=== PATIENT | female | born 1960 | race Caucasian/White ===

== ENCOUNTER 2017-03-16 11:35 | Day surgery (SDC) | END 2017-03-16 20:55 | disposition home or self-care (01) ==

== ENCOUNTER 2018-12-03 11:33 | Inpatient (IN) | payer OTHER ==
[~2018-12-03] VITALS: Ht 152.4 cm; Wt 81.4 kg
[~2018-12-03 11:33] MED LIST: AMLO-147 PO; AMOX1TAB9 PO; AMOX500T PO; CARV25TA97 PO; CARV6.2579 PO; CHLO25TA2 PO; CYCL10TA7 PO; FENO160T13 PO; GABA-526 PO; GLIP10TA14 PO; HYDR-4011 PO; HYDR2TAB36 PO; ISOS30TA67 PO; LANT3I SC; LEVO25TA6 PO; LIDO700A29 TP; LIPA1CAP45 PO; LISI10TA2 PO; LISI1TAB24 PO; LORA-441 PO; METF100010 PO; NALO0.4S IJ; NAPR-688 PO; NITR0.4T39 SL; OMEG1CAP2 PO; OXYC-431 PO; PRAV40TA76 PO; SITA100T11 PO; [UNRECOGNIZED DRUG - CODE] PO
[2018-12-03] MEDS ORDERED: SOD CHLORIDE 0.9% 1,000 ML IV STA ×2 (13:03→14:38)
[2018-12-03] MEDS ORDERED: LEVOFLOXACIN 750MG/D5W (PMX) 150 ML IVPB ONE (14:30)
[2018-12-03] MEDS ORDERED: OXYCODONE/ACETAMINOPHEN (10/325) TAB PO ONE (15:00)
[2018-12-03] MEDS ORDERED: ONDANSETRON 4 MG INJ IV PRN (15:30)
[2018-12-03] MEDS ORDERED: ACETAMINOPHEN 325 MG TAB PO PRN ×2 (15:30→19:00)
[2018-12-03 18:05] VITALS: BP 161/68; PULSE 72; RESP 18
[2018-12-03 18:38] VITALS: Ht 152.4 cm; Wt 81.4 kg
[2018-12-03] MEDS ORDERED: SOD CHLORIDE 0.9% 1,000 ML IV SCH (18:44)
[2018-12-03] MEDS ORDERED: morphine 2 MG INJ IV PRN (19:00)
[2018-12-03] MEDS ORDERED: DOCUSATE SODIUM 100 MG CAP PO PRN (19:00)
[2018-12-03] MEDS ORDERED: HYDROCODONE/APAP (5/325) TAB PO PRN (19:00)
[2018-12-03] MEDS ORDERED: NACL 0.9% 3 ML SYG IV SCH (19:00)
[2018-12-03] MEDS ORDERED: GLUCOSE GEL 15 GRAM TUBE PO PRN ×2 (19:30)
[2018-12-03] MEDS ORDERED: DEXTROSE 50% 50 ML SYRINGE IV PRN ×2 (19:30)
[2018-12-03] MEDS ORDERED: GLUCAGON 1 MG INJ IM PRN (19:30)
[2018-12-03] MEDS ORDERED: GLUCOSE GEL 15 GRAM TUBE BUCCAL PRN (19:30)
[2018-12-03 19:46] VITALS: BP 147/67; PULSE 68; RESP 17
[2018-12-03] MEDS ORDERED: CEFTRIAXONE 1 GM/50 ML (PMX) 50 ML IVPB SCH (20:00)
[2018-12-03] MEDS: GABAPENTIN 300 MG CAP PO SCH (20:59)
[2018-12-03] MEDS: INSULIN GLARGINE [LANTus] (100 UNITS/ML) SYG SC SCH (21:00)
[2018-12-03] MEDS: ISOSORBIDE MONONITRATE(SR)30 MG TAB PO SCH (21:00)
[2018-12-03] MEDS: INSULIN ASPART [NOVOLOG] 3 ML PEN SC SCH (21:00)
[2018-12-03] MEDS: ONDANSETRON 4 MG INJ IV PRN (21:07)
[2018-12-03] MEDS ORDERED: DEXTROSE 5%-0.45% NACL 1,000 ML IV SCH (22:45)
[2018-12-03] MEDS ORDERED: OXYCODONE/ACETAMINOPHEN (5/325) TAB PO PRN (23:00)
[2018-12-03] MEDS: OXYCODONE/ACETAMINOPHEN (5/325) TAB PO PRN (23:13)
[2018-12-04] MEDS: ACCU-CHEK XX SCH ×3 (02:00→21:26)
[2018-12-04 02:42] VITALS: BP 127/60; PULSE 66; RESP 16
[2018-12-04] MEDS: OXYCODONE/ACETAMINOPHEN (5/325) TAB PO PRN (05:47)
[2018-12-04] MEDS: ONDANSETRON 4 MG INJ IV PRN (05:59)
[2018-12-04 07:33] VITALS: BP 149/69; PULSE 63; RESP 16
[2018-12-04] MEDS ORDERED: metFORMIN 500 MG TAB PO SCH (08:00)
[2018-12-04] MEDS: AMLODIPINE 10 MG TAB PO SCH (08:30)
[2018-12-04] MEDS: GABAPENTIN 300 MG CAP PO SCH ×4 (08:30→21:29)
[2018-12-04] MEDS: INSULIN ASPART [NOVOLOG] 3 ML PEN SC SCH ×4 (08:31→21:00)
[2018-12-04] MEDS: morphine 2 MG INJ IV PRN ×7 (10:03→23:43)
[2018-12-04] MEDS: CEFEPIME 1GM/50 ML (PMX) 50 ML IVPB SCH ×2 (12:34→21:28)
[2018-12-04 14:31] VITALS: BP 138/64; PULSE 60; RESP 18
[2018-12-04] MEDS: glipiZIDE 10 MG TAB PO SCH (17:26)
[2018-12-04] MEDS: metFORMIN 500 MG TAB PO SCH (17:26)
[2018-12-04] MEDS ORDERED: ACCU-CHEK XX SCH (17:30)
[2018-12-04 19:34] VITALS: BP 152/68; PULSE 73; RESP 17
[2018-12-04] MEDS: ISOSORBIDE MONONITRATE(SR)30 MG TAB PO SCH (21:00)
[2018-12-04] MEDS: INSULIN GLARGINE [LANTus] (100 UNITS/ML) SYG SC SCH (21:31)
[2018-12-04] MEDS: ZOLPIDEM 5 MG TAB PO PRN (22:28)
[2018-12-05] MEDS: ACCU-CHEK XX SCH ×5 (01:56→21:33)
[2018-12-05] MEDS: morphine 2 MG INJ IV PRN ×9 (02:22→22:07)
[2018-12-05 02:36] VITALS: BP 145/69; PULSE 64; RESP 18
[2018-12-05 07:51] VITALS: BP 130/63; PULSE 62; RESP 16
[2018-12-05] MEDS: glipiZIDE 10 MG TAB PO SCH ×2 (08:56→17:49)
[2018-12-05] MEDS: metFORMIN 500 MG TAB PO SCH ×2 (08:56→17:49)
[2018-12-05] MEDS: AMLODIPINE 10 MG TAB PO SCH (08:57)
[2018-12-05] MEDS: GABAPENTIN 300 MG CAP PO SCH ×4 (08:57→21:25)
[2018-12-05] MEDS: CEFEPIME 1GM/50 ML (PMX) 50 ML IVPB SCH ×2 (08:58→21:24)
[2018-12-05] MEDS: INSULIN ASPART [NOVOLOG] 3 ML PEN SC SCH ×4 (09:00→21:00)
[2018-12-05 14:45] VITALS: BP 161/71; PULSE 66; RESP 16
[2018-12-05 20:12] VITALS: BP 156/71; PULSE 64; RESP 18
[2018-12-05] MEDS: ISOSORBIDE MONONITRATE(SR)30 MG TAB PO SCH (21:00)
[2018-12-05] MEDS: HEPARIN 5,000 UNIT/1 ML VIAL SC SCH (21:00)
[2018-12-05] MEDS: INSULIN GLARGINE [LANTus] (100 UNITS/ML) SYG SC SCH (21:32)
[2018-12-05] MEDS: ZOLPIDEM 5 MG TAB PO PRN (22:05)
[2018-12-06] MEDS: morphine 2 MG INJ IV PRN ×10 (01:32→23:14)
[2018-12-06] MEDS: ACCU-CHEK XX SCH ×5 (01:42→21:00)
[2018-12-06 03:23] VITALS: BP 150/67; PULSE 62; RESP 18
[2018-12-06 07:20] VITALS: BP 155/69; PULSE 56; RESP 16
[2018-12-06] MEDS: INSULIN ASPART [NOVOLOG] 3 ML PEN SC SCH ×4 (08:00→21:00)
[2018-12-06] MEDS: HEPARIN 5,000 UNIT/1 ML VIAL SC SCH ×2 (09:00→21:00)
[2018-12-06] MEDS: metFORMIN 500 MG TAB PO SCH ×2 (09:09→17:29)
[2018-12-06] MEDS: GABAPENTIN 300 MG CAP PO SCH ×4 (09:09→21:20)
[2018-12-06] MEDS: glipiZIDE 10 MG TAB PO SCH ×2 (09:10→17:29)
[2018-12-06] MEDS: AMLODIPINE 10 MG TAB PO SCH (09:10)
[2018-12-06] MEDS: CEFEPIME 1GM/50 ML (PMX) 50 ML IVPB SCH ×2 (09:11→21:19)
[2018-12-06] MEDS: LOSARTAN 25 MG TAB PO SCH (14:07)
[2018-12-06 15:12] VITALS: BP 147/64; PULSE 66; RESP 16
[2018-12-06 19:23] VITALS: BP 130/60; PULSE 71; RESP 16
[2018-12-06] MEDS: ISOSORBIDE MONONITRATE(SR)30 MG TAB PO SCH (21:00)
[2018-12-06] MEDS: ZOLPIDEM 5 MG TAB PO PRN (21:22)
[2018-12-06] MEDS: INSULIN GLARGINE [LANTus] (100 UNITS/ML) SYG SC SCH (21:30)
[2018-12-07] MEDS: morphine 2 MG INJ IV PRN ×9 (01:51→22:01)
[2018-12-07] MEDS: ACCU-CHEK XX SCH ×5 (01:53→21:02)
[2018-12-07 02:00] VITALS: BP 157/73; PULSE 67; RESP 18
[2018-12-07 07:37] VITALS: BP 132/63; PULSE 60; RESP 18
[2018-12-07] MEDS: INSULIN ASPART [NOVOLOG] 3 ML PEN SC SCH ×4 (08:00→21:00)
[2018-12-07] MEDS: metFORMIN 500 MG TAB PO SCH ×2 (08:17→17:47)
[2018-12-07] MEDS: CEFEPIME 1GM/50 ML (PMX) 50 ML IVPB SCH ×2 (08:21→20:58)
[2018-12-07] MEDS: glipiZIDE 10 MG TAB PO SCH ×2 (08:21→17:47)
[2018-12-07] MEDS: GABAPENTIN 300 MG CAP PO SCH ×4 (08:21→21:01)
[2018-12-07] MEDS: AMLODIPINE 10 MG TAB PO SCH (08:22)
[2018-12-07] MEDS: LOSARTAN 25 MG TAB PO SCH (08:22)
[2018-12-07] MEDS: HEPARIN 5,000 UNIT/1 ML VIAL SC SCH ×2 (08:23→21:00)
[2018-12-07 14:53] VITALS: BP 119/58; PULSE 72; RESP 18
[2018-12-07 19:19] VITALS: BP 147/65; PULSE 70; RESP 16
[2018-12-07] MEDS: ISOSORBIDE MONONITRATE(SR)30 MG TAB PO SCH (21:00)
[2018-12-07] MEDS: INSULIN GLARGINE [LANTus] (100 UNITS/ML) SYG SC SCH (21:06)
[2018-12-07] MEDS: ZOLPIDEM 5 MG TAB PO PRN (22:54)
[2018-12-08] MEDS: morphine 2 MG INJ IV PRN ×7 (01:16→16:30)
[2018-12-08] MEDS: ACCU-CHEK XX SCH ×4 (01:20→17:22)
[2018-12-08 01:35] VITALS: BP 157/70; PULSE 66; RESP 16
[2018-12-08 07:28] VITALS: BP 149/67; PULSE 65; RESP 18
[2018-12-08] MEDS: INSULIN ASPART [NOVOLOG] 3 ML PEN SC SCH ×3 (08:00→17:24)
[2018-12-08] MEDS: glipiZIDE 10 MG TAB PO SCH ×2 (08:31→17:22)
[2018-12-08] MEDS: metFORMIN 500 MG TAB PO SCH ×2 (08:31→17:22)
[2018-12-08] MEDS: LOSARTAN 25 MG TAB PO SCH (08:32)
[2018-12-08] MEDS: GABAPENTIN 300 MG CAP PO SCH ×3 (08:33→16:29)
[2018-12-08] MEDS: CEFEPIME 1GM/50 ML (PMX) 50 ML IVPB SCH (08:33)
[2018-12-08] MEDS: AMLODIPINE 10 MG TAB PO SCH (08:33)
[2018-12-08] MEDS: HEPARIN 5,000 UNIT/1 ML VIAL SC SCH (08:35)
[2018-12-08 14:30] VITALS: BP 156/67; PULSE 75; RESP 20
== END 2018-12-08 18:26 | disposition home or self-care (01) | DRG 872 ==
LOC: FTE 11:33 → 2NE 15:21 → OBSVTOIN 12-04 17:12
PROVIDERS: ADMIT Internal Medicine; ATTEND Internal Medicine
DX: A41.9 Sepsis, unspecified organism (principal); N39.0 Urinary tract infection, site not specified; N17.9 Acute kidney failure, unspecified; K86.1 Other chronic pancreatitis; E11.22 Type 2 diabetes mellitus with diabetic chronic kidney disease; E03.9 Hypothyroidism, unspecified; I12.9 Hypertensive chronic kidney disease with stage 1 through stage 4 chronic kidney disease, or unspecified chronic kidney disease; N18.3 Chronic kidney disease, stage 3 (moderate); Z90.49 Acquired absence of other specified parts of digestive tract; Z79.4 Long term (current) use of insulin
CPT/HCPCS: 36415; 80048; 81001; 82962; 83036; 83735; 84100; 85025; 87086; 93005; 96374; G0378; J0692; J0696; J1644; J1815; J1956; J2270; J2405; J7030; J7042